=== PATIENT | female | born 1945 | race Caucasian/White ===

== ENCOUNTER → 2016-10-26 | Outpatient (CLI) | payer BC ==
[~2016-10-26] MED LIST: ACET650T82 PO; ASPEC325 PO; ATOR-22 PO; CALC600T9 PO; CHOL20009 PO; DICL75TA2 PO; DIPH1CAP11 PO; FEXO1TAB49 PO; FRRG PO; LISI20TA3 PO; TRIATAB3 PO; ZNT/150 PO
[2016-10-26 12:51] LABS: BLOOD UREA NITROGEN 13 mg/dl (7-18); BUN/CREATININE RATIO 15.8 (10-20); CALCIUM 9.5 mg/dl (8.5-10.1); CARBON DIOXIDE 28 mmol/L (21-32); CHLORIDE 100 mmol/L (98-107); GLUCOSE 86 mg/dl (70-99); POTASSIUM 3.6 mmol/L (3.5-5.1); SODIUM 136 mmol/L (136-145)
[2016-10-26 13:02] LABS: CHOLESTEROL 170 mg/dl (0-200); HDL CHOLESTEROL 83 mg/dl; TRIGLYCERIDES 106 mg/dl (0-150); VERY LOW DENSITY LIPOPROT CALC 21 mg/dl
== END | disposition home or self-care (01) ==
LOC: C.LABSPEC 12:24
PROVIDERS: ATTEND Internal Medicine
DX: I10 Essential (primary) hypertension (principal); E78.5 Hyperlipidemia, unspecified; E04.2 Nontoxic multinodular goiter; E55.9 Vitamin D deficiency, unspecified

== ENCOUNTER → 2016-11-29 | Outpatient (CLI) | payer BC ==
--- NOTE | 2016-11-29 17:03 | MAMMOGRAPHY REPORT ---
BILATERAL DIGITAL SCREENING MAMMOGRAM WITH CAD: 11/29/2016 TECHNIQUE: Current study was also evaluated with a Computer Aided Detection (CAD) system. Bilatera l CC and MLO views were obtained. COMPARISON: Comparison is made to exams dated: 11/26/2015 mammogram, 10/29/2013 mammogram, 10/28/2012 mammogram, 11/04/2014 mammogram, 10/20/2011 mammogram, and 10/19/2010 mammogram - [facility]. BREAST COMPOSITION: There are scattered areas of fibroglandular density in both breasts. FINDINGS: No suspicious masses, calcifications, or areas of architectural distortion are noted in e ither breast. There has been no significant interval change compared to prior exams. Scattered bilat eral benign-appearing calcifications are not significantly changed. IMPRESSION: ACR BI-RADS CATEGORY 2: BENIGN There is no mammographic evidence of malignancy. A 1 year screening mammogram is recommended. The p atient will receive written notification of the results. Approximately 10% of breast cancers are not detected with mammography. A negative mammographic repor t should not delay biopsy if a clinically suggestive mass is present. Ale Gil M.D. ah/:11/29/2016 16:29:58 Edger Machine Setter: Zaria DURHAM(Martin)(M), [facility] letter sent: Normal 1/2 BI-RADS Code: ACR BI-RADS Category 2: Benign
== END | disposition home or self-care (01) ==
LOC: C.MAMM 10:30
PROVIDERS: ATTEND Internal Medicine
DX: Z12.31 Encounter for screening mammogram for malignant neoplasm of breast (principal)

== ENCOUNTER → 2017-04-26 | Outpatient (CLI) | payer BC ==
[2017-04-26 12:50] LABS: BASO % 0.5 %; BASO ABS # 0.03 K/uL (0-0.2); COMPLETE YES; HEMATOCRIT 43.3 % (37-47); LYMPH % 28.4 %; LYMPH ABS # 1.65 K/uL (1.2-3.4); MEAN CELL VOLUME 90.2 fL (80-100); MEAN CORPUSCULAR HEMOGLOBIN 30.4 pg (25-34); MEAN CORPUSCULAR HGB CONC 33.7 g/dl (32-36); MEAN PLATELET VOLUME 11.2 fL (7.4-10.4); MONO % 7.7 %; NEUT % 62.4 %; PLATELET COUNT 270 K/uL (130-400); WHITE BLOOD COUNT 5.82 K/uL (4.8-10.8)
[2017-04-26 13:45] LABS: ALT/SGPT 29 U/L (12-78); AST/SGOT 31 U/L (15-37); BLOOD UREA NITROGEN 11 mg/dl (7-18); BUN/CREATININE RATIO 12.5 (10-20); CALCIUM 9.6 mg/dl (8.5-10.1); CARBON DIOXIDE 28 mmol/L (21-32); CHLORIDE 100 mmol/L (98-107); CHOLESTEROL 148 mg/dl (0-200); CREATININE 0.89 mg/dl (0.60-1.20); GLUCOSE 80 mg/dl (70-99); POTASSIUM 3.6 mmol/L (3.5-5.1); SODIUM 137 mmol/L (136-145); TRIGLYCERIDES 56 mg/dl (0-150); VERY LOW DENSITY LIPOPROT CALC 11 mg/dl
[2017-04-26 13:56] LABS: ALKALINE PHOSPHATASE 79 U/L (45-117); CHOLESTEROL/HDL RATIO 1.8; HDL CHOLESTEROL 82 mg/dl; THYROID STIMULATING HORMONE 0.948 uIu/ml (0.300-4.500)
== END | disposition home or self-care (01) ==
LOC: C.LABSPEC 12:12
PROVIDERS: ATTEND Internal Medicine
DX: I10 Essential (primary) hypertension (principal); E78.5 Hyperlipidemia, unspecified; M19.90 Unspecified osteoarthritis, unspecified site; E04.2 Nontoxic multinodular goiter; Z11.59 Encounter for screening for other viral diseases

== ENCOUNTER → 2017-09-02 | Outpatient (CLI) | payer BC | END | disposition home or self-care (01) | LOC: C.LABSPEC 12:21 | PROVIDERS: ATTEND Internal Medicine | DX: Z12.11 Encounter for screening for malignant neoplasm of colon (principal) ==

== ENCOUNTER → 2017-10-24 | Outpatient (CLI) | payer BC ==
[2017-10-24 14:41] LABS: CHOLESTEROL 175 mg/dl (0-200); LDL CHOLESTEROL (DIRECT) 89 mg/dl
== END | disposition home or self-care (01) ==
LOC: C.LABSPEC 12:38
PROVIDERS: ATTEND Internal Medicine
DX: I10 Essential (primary) hypertension (principal); E78.5 Hyperlipidemia, unspecified; E55.9 Vitamin D deficiency, unspecified; E01.0 Iodine-deficiency related diffuse (endemic) goiter

== ENCOUNTER → 2017-11-30 | Outpatient (CLI) | payer BC ==
--- NOTE | 2017-11-30 15:44 | MAMMOGRAPHY REPORT ---
BILATERAL DIGITAL SCREENING MAMMOGRAM TOMOSYNTHESIS WITH CAD: 11/30/2017 CLINICAL HISTORY: Routine screening. TECHNIQUE: Breast tomosynthesis in addition to standard 2D mammography was performed. Current study was also evaluated with a Computer Aided Detection (CAD) system. COMPARISON: Comparison is made to exams dated: 11/29/2016 mammogram, 11/26/2015 mammogram, 11/04/2014 barry mogram, 10/29/2013 mammogram, 10/28/2012 mammogram, and 10/20/2011 mammogram - [facility] [address]. BREAST COMPOSITION: The tissue of both breasts is heterogeneously dense, which may obscure small mas ses. FINDINGS: No suspicious masses, calcifications, or areas of architectural distortion are noted in ei ther breast. There has been no significant interval change compared to prior exams. IMPRESSION: ACR BI-RADS CATEGORY 1: NEGATIVE There is no mammographic evidence of malignancy. A 1 year screening mammogram is recommended. The pa tient will receive written notification of the results. Approximately 10% of breast cancers are not detected with mammography. A negative mammographic report should not delay biopsy if a clinically suggestive mass is present. Ale Gil M.D. ah/:11/30/2017 13:49:26 Property Disposal Officer: Jo DURHAM(Martin)(Yary), [facility] letter sent: Normal 1/2 BI-RADS Code: ACR BI-RADS Category 1: Negative
== END | disposition home or self-care (01) ==
LOC: C.MAMM 09:25
PROVIDERS: ATTEND Internal Medicine
DX: Z12.31 Encounter for screening mammogram for malignant neoplasm of breast (principal)

== ENCOUNTER 2020-04-23 05:08 | Observation (INO) ==
--- NOTE | 2020-04-06 11:08 | PAT Medication Instructions ---
Medication Instructions Date of Service April 06, 2020 Home Medications Medication Instructions Recorded meloxicam 15 mg tablet 15 mg PO DAILY #30 tab 02/17/20 meloxicam 15 mg tablet 15 mg PO DAILY acetaminophen [Tylenol Arthritis Pain] 1,300 mg PO HS atorvastatin [Lipitor] 20 mg PO HS calcium carbonate-vitamin D3 1 tab PO DAILY cyanocobalamin (vitamin B-12) 1,000 mcg PO DAILY ferrous sulfate 325 mg PO DAILY lisinopril 10 mg PO QAM lorazepam 0.5 mg PO QPM PRN triamterene-hydrochlorothiazid 1 tab PO QAM ASK your surgeon for instructions meloxicam 15 mg tablet 15 mg PO DAILY DO NOT take the morning of surgery calcium carbonate-vitamin D3 1 tab PO DAILY cyanocobalamin (vitamin B-12) 1,000 mcg PO DAILY ferrous sulfate 325 mg PO DAILY lisinopril 10 mg PO QAM triamterene-hydrochlorothiazid 1 tab PO QAM Take evening before surgery acetaminophen [Tylenol Arthritis Pain] 1,300 mg PO HS atorvastatin [Lipitor] 20 mg PO HS lorazepam 0.5 mg PO QPM PRN (if needed) *NOTHING TO EAT OR DRINK AFTER MIDNIGHT* Other Notes If you have any questions please call us at [phone] or [phone] or [phone] or [phone]
--- NOTE | 2020-04-06 11:30 | Anesthesiology Consultation ---
Date of Service April 06, 2020 Assessment & Plan (1) Encounter for pre-operative examination: COVID Status: As of 04/06 assessment, patient denies travel to endemic area, known exposure/sick contacts, or symptoms of COVID19. Patient instructed to follow strict social distancing guidelines, wear a mask in public and avoid travel for 14 days prior to surgery. Preoperative COVID19 testing to be completed prior to surgery (04/19). Patient made aware to self-isolate as much as possible between COVID testing and surgery. Patient needs echo to evaluate murmur prior to surgery with planned SAB. Chart Review Chart Review: Acceptable Risk for Surgery (pending echo) and Patient seen in Pre Admission Testing Teaching & Discussion Instructed NPO after midnight before surgery, except medications with 15 cc of water. Medication instructions provided according to the PAT guidelines. History Surgery Operation Date: 04/23/20 07:00 Proposed Procedures p Left Anterior Total Hip Arthroplasty - Zack Chaparro, DO Height/Weight Height: 5 ft 4 in Weight: 60.9 kg Allergies Allergy/AdvReac Type Severity Reaction Status Date / Time Penicillins Allergy Mild HIVES Unverified 04/01/20 08:05 Medications Home Medications Medication Instructions Recorded Confirmed Last Taken meloxicam 15 mg tablet 15 mg PO DAILY #30 tab 02/17/20 04/01/20 Unknown acetaminophen [Tylenol Arthritis 1,300 mg PO HS 04/01/20 04/01/20 Unknown Pain] atorvastatin [Lipitor] 20 mg PO HS 04/01/20 04/01/20 Unknown calcium carbonate-vitamin D3 1 tab PO DAILY 04/01/20 04/01/20 Unknown [Calcium 600 + D(3)] cyanocobalamin (vitamin B-12) 1,000 mcg PO DAILY 04/01/20 04/01/20 Unknown [Vitamin B-12] ferrous sulfate 325 mg PO DAILY 04/01/20 04/01/20 Unknown lisinopril 10 mg PO QAM 04/01/20 04/01/20 Unknown lorazepam 0.5 mg PO QPM PRN 04/01/20 04/01/20 Unknown triamterene-hydrochlorothiazid 1 tab PO QAM 04/01/20 04/01/20 Unknown Past Medical History Medical History 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 Hyperlipidemia Hypertension Nausea and vomiting after administration of anesthetic agent Osteoarthritis Exercise / Class Metabolic Activity II 4-5 Yardwork/Stairs/Walk up hill (limited by hip pain but denies CP or SOB with 1 FOS) Past Surgical History Surgical History History of colonoscopy History of total hip arthroplasty right Past Anesthesia History No Hx of Anesthesia Complications and No Family Hx of Anesthesia Complications History of PONV History of PONV and Hx of Motion Sickness Social History Smoking Status: Never smoker Do You Dip or Chew Tobacco: No Hx Alcohol Use: Yes Alcohol type: wine alcohol intake frequency: holidays/special occasions only Hx Substance Use: No substance use type: does not use Review of Systems Pt denies any recent chest pain, shortness of breath, cough, fever or URI. +Sinus drainage, chronic; occ palpitations Physical Exam Vital Signs BP: 159/114 (pt has not taken any BP meds this AM, and is very nervous. Takes BP at nathaniel usually 120-130s systolic, 80s diastolic) P: 80bpm SPO2: 97% RA T: 98.2 F R: 12 ENMT Mouth: + dental restorations (few crowns on molars); no chipped teeth and no loose teeth Thyromental Distance: > or= 3.5 Finger Breadths (3.5) Mallampati Class: II Neck normal visual inspection; neck extension not limited Respiratory normal respiratory effort Auscultation: lungs clear to auscultation bilaterally Cardiovascular Rate/Rhythm: + abnormal rate and + abnormal rhythm (irregularly irregular with runs of tachycardia) Heart Sounds: + murmur (II/ systolic) Extremities: no edema Patient reporting palpitations corresponding with irregular rhythm on exam. EKG showed few PACs, and patient reported decrease in symptoms when reclined for EKG. Testing Laboratory Results 04/06/20 11:41 04/06/20 11:41 PT 10.4 Seconds (9.0-12.0) 04/06/20 11:41 INR 1.0 (0.9-1.1) 04/06/20 11:41 APTT 27.1 Seconds (21.0-31.0) 04/06/20 11:41 Blood Type A Negative 04/06/20 11:41 Antibody Screen NEGATIVE 04/06/20 11:41 Electrocardiogram Date: 04/06/20 Findings: + NSR @ (83bpm with PACs) Compared to EKG of 10/08/15, PACs are now present.
--- NOTE | 2020-04-06 12:13 | XRay Report ---
XR chest Pre-admission PA/Lat HISTORY: 74 years-old Female pat preoperative exam. No acute chest complaints COMPARISON: Chest radiograph 10/08/2015 TECHNIQUE: PA and lateral views of the chest FINDINGS: Cardiomediastinal and hilar silhouettes are within normal limits. No pneumothorax, pleural effusion, airspace consolidation or overt pulmonary edema. Lungs are mildly hyperinflated. Patient is mildly ro tated on the lateral view. Degenerative changes of the shoulders and spine. IMPRESSION: No acute process. ACT 112: Negative or not required by law. The above report was generated using voice recognition software. It may contain grammatical, syntax o r spelling errors. Electronically signed by: Santos Merchant M.D. 04/06/2020 12:12 PM
[2020-04-06 12:24] LABS: Basophils # (auto) 0.04 K/uL (0-0.2); Basophils % (auto) 0.6 %; Eosinophils # (auto) 0.12 K/uL (0-0.5); Eosinophils % (auto) 1.9 %; Hematocrit (blood only) 41.8 % (37-47); Hemoglobin 13.9 g/dL (12.0-16.0); Immature Granulocytes # (auto) 0.01 K/uL (0.00-0.02); Immature Granulocytes % (auto) 0.2 %; Lymphocytes # (auto) 1.67 K/uL (1.2-3.4); Lymphocytes % (auto) 26.3 %; Mean Corpuscular Hemoglobin 30.7 pg (25-34); Mean Corpuscular Hgb Conc 33.3 g/dL (32-36); Mean Corpuscular Volume 92.3 fL (80-100); Mean Platelet Volume 10.3 fL (7.4-10.4); Monocytes % (auto) 6.3 %; Neutrophils # (auto) 4.12 K/uL (1.4-6.5); Neutrophils % (auto) 64.7 %; Platelet Count 289 K/uL (130-400); RDW Coefficient of Variation 12.7 % (11.5-14.5); RDW Standard Deviation 43.2 fL (36.4-46.3); Red Blood Count 4.53 M/uL (4.2-5.4); White Blood Count 6.36 K/uL (4.8-10.8)
[2020-04-06 12:33] LABS: Partial Thromboplastin Time 27.1 Seconds (21.0-31.0); Prothrombin Time 10.4 Seconds (9.0-12.0)
[2020-04-06 14:55] LABS: BUN Creatinine Ratio 15.1 (10-20); Creatinine Clr Calc Pharmacy 56.9 ml/min; Est GFR (African American) 90.2; Est GFR (Non-African American) 77.8; Potassium 4.2 mmol/L (3.5-5.1)
--- NOTE | 2020-04-07 06:45 | Electrocardiogram Report ---
Test Reason : Blood Pressure : / mmHG Vent. Rate : 083 BPM Atrial Rate : 083 BPM P-R Int : 166 ms QRS Dur : 092 ms QT Int : 396 ms P-R-T Axes : 082 070 060 degrees QTc Int : 465 ms Sinus rhythm with Premature atrial complexes Otherwise normal ECG When compared with ECG of 08-OCT-2015 10:53, Premature atrial complexes are now Present Confirmed by Ethan Lozoya ([id number]) on 04/07/2020 6:45:08 AM Referred By: Zack Chaparro Confirmed By:Ethan Lozoya
--- NOTE | 2020-04-22 08:12 | History & Physical Report ---
Date of Service April 22, 2020 Assessment & Plan (1) Osteoarthritis of left hip: We will proceed with a left anterior total hip arthroplasty. Postoperatively she will be placed on aspirin for DVT prophylaxis and kept overnight in the hospital for postoperative medical management. She plans to go to outpatient physical therapy upon discharge. Zaria is a low risk for joint replacement surgery without any major comorbidities. Present on Admission?: Yes History of Present Illness Chief Complaint: Primary osteoarthritis of the left hip Primary Care Provider: Eliseo Claudio MD Zaria is a pleasant 74-year-old female who is been dealing with severe increasing left hip pain. She does have a history of a right hip replacement done [address] Leon. Her hip pain is debilitating. She has trouble going up and down stairs. She has trouble sleeping at night. X-rays and clinical examination have been diagnostic for advanced osteoarthritis of the left hip. After failing conservative treatment, she has elected proceed with a left anterior total hip arthroplasty. Allergies Allergy/AdvReac Type Severity Reaction Status Date / Time Penicillins Allergy Mild HIVES Unverified 04/15/20 10:03 Home Medications Home Medications Medication Instructions Recorded Confirmed Type meloxicam 15 mg tablet 15 mg PO DAILY #30 tab 02/17/20 04/15/20 Rx acetaminophen [Tylenol Arthritis 1,300 mg PO HS 04/01/20 04/15/20 History Pain] atorvastatin [Lipitor] 20 mg PO HS 04/01/20 04/15/20 History calcium carbonate-vitamin D3 1 tab PO DAILY 04/01/20 04/15/20 History [Calcium 600 + D(3)] cyanocobalamin (vitamin B-12) 1,000 mcg PO DAILY 04/01/20 04/15/20 History [Vitamin B-12] lisinopril 10 mg PO QAM 04/01/20 04/15/20 History lorazepam 0.5 mg PO QPM PRN 04/01/20 04/15/20 History triamterene-hydrochlorothiazid 1 tab PO QAM 04/01/20 04/15/20 History Past Med/Surg History Medical History 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 Hyperlipidemia Hypertension Osteoarthritis Surgical History History of colonoscopy History of total hip arthroplasty right Nausea and vomiting after administration of anesthetic agent Family History Other No family history of adverse response to anesthesia Social History Smoking Status: Never smoker Second Hand Exposure: No; Hx Alcohol Use: Yes Alcohol type: wine Hx Substance Use: No Preferred Language: Tajik Communication Ability: Effective Dumper Mold Cleaner Required: No Beliefs That Will Affect Care: None Current Living Situation: Spouse Feels Safe at Home: Yes Review of Systems Review of Systems: All systems reviewed & are unremarkable except as noted in HPI & below Physical Exam Constitutional: WD/WN, vitals as above Eyes: PERRL, conjunctivae normal, anicteric sclerae ENMT: external ear and nose normal, oropharynx normal Neck: trachea midline, no thyromegaly Respiratory: normal respiratory effort Cardiovascular: RRR, no murmur, no edema Gastrointestinal (Abdomen): normal bowel sounds, soft, nontender, no hepatosplenomegaly Musculoskeletal: Physical examination of the left hip reveals decreased range of motion with flexion, internal and external rotation. There is significant gr oin pain with forced internal rotation of the hip his leg lengths are essentially equal. Psychiatric: A+Ox3, euthymic affect Results & Data Results & Data ([facility]) Diagnostic Findings Radiographs of the left hip and pelvis demonstrate advanced osteoarthritis with joint space narrowing osteophyte formation and [id number] articulation. PG Care Time/CCT Total # of Minutes Spent Total Time Spent with Patient: Total time spent is greater than 50% in coordination of care (as documented) at patient's floor/unit and/or counseling patient: Coding Level of Care Code 14331 Initial Inpt Care Lvl 3 Diagnoses Osteoarthritis of left hip M16.12
[2020-04-23] MEDS ORDERED: TRANEXAMIC ACID 1,000 MG **IV Pre-op IV SCH (06:00)
[2020-04-23] MEDS ORDERED: ACETAMINOPHEN 500 MG TAB PO SCH (06:00)
[2020-04-23] MEDS ORDERED: ROPIVACAINE 0.5% HCL/PF 150 MG, BUPIVACAINE 0.5% MPF 30 ML, EPINEPHrine 30MG/30ML (OR U... INSTIL SCH (06:00)
[2020-04-23] MEDS ORDERED: GABAPENTIN 300 MG CAP PO SCH (06:00)
[2020-04-23] MEDS ORDERED: dexAMETHasone 4 MG TAB PO SCH (06:00)
[2020-04-23] MEDS ORDERED: LR 500ML BOLUS, THEN 15ML/HR IV SCH (06:00)
[2020-04-23] MEDS ORDERED: LR 60ML/HR IV SCH (06:00)
[2020-04-23] MEDS ORDERED: CEFAZOLIN 1000MG 1,000 MG/7.5 ML SYR IV SCH (06:00)
[2020-04-23] MEDS ORDERED: TRANEXAMIC ACID 1,000 MG **IV Intra-op IV SCH (06:00)
[2020-04-23] MEDS ORDERED: FAMOTIDINE 20 MG TAB PO SCH (06:00)
[2020-04-23] MEDS ORDERED: PROPOFOL IV EMULSION 10 MG/ML 20 ML VIAL IV ONE (06:22)
[2020-04-23] MEDS ORDERED: MIDAZOLAM HCL 1 MG/ML 2ML VIAL ONE (06:23)
[2020-04-23] MEDS ORDERED: fentaNYL citrate 100 MCG/2 ML VIAL ONE (06:23)
[2020-04-23] MEDS ORDERED: BUPIVACAINE 0.5 % 5 MG/1 ML PF 10ML VIAL ONE (06:26)
[2020-04-23] MEDS ORDERED: HYDROmorphone INJ 2 MG/ML SYR/VIAL IV PRN (06:39)
[2020-04-23] MEDS ORDERED: fentaNYL citrate 100 MCG/2 ML VIAL IV PRN (06:39)
[2020-04-23] MEDS ORDERED: ePHEDrine sulfate 50 MG/ML AMP IV PRN (06:39)
[2020-04-23] MEDS ORDERED: ATROPINE SULFATE 0.1 MG/ML 10ML SYR IV PRN (06:39)
[2020-04-23] MEDS ORDERED: ONDANSETRON INJ 2 MG/ML 2 ML VIAL IV PRN ×2 (06:39→09:31)
--- NOTE | 2020-04-23 06:52 | History & Physical Bridge Note ---
Date of Service April 23, 2020 History & Physical Bridge Note I have examined the patient, reviewed the History & Physical and in the interval since the performance of the History & Physical I have noted the following changes of clinical significance: no changes noted
[2020-04-23] MEDS ORDERED: CEFAZOLIN 1,000 MG/7.5 ML IV PUSH IV ONE (06:53)
[2020-04-23] MEDS ORDERED: ORTHO JOINT ANESTHETIC ONE (06:55)
[2020-04-23] MEDS: CEFAZOLIN 1000MG 1,000 MG/7.5 ML SYR IV SCH ×2 (06:56→07:09)
--- NOTE | 2020-04-23 08:19 | Operative Report ---
PG Post Operative Report Pre & Post Diagnosis Operation Date: 04/23/20 07:00 Pre-Op Diagnosis: Degenerative Joint Disease Left Hip Post-Op Diagnosis: Degenerative Joint Disease Left Hip I identified the patient and participated in the time-out.: Yes Procedure Operation Date: 04/23/20 07:00 Actual Procedures p Left Anterior Total Hip Arthroplasty(Left) - Zack Chaparro DO Surgeon Zack Chaparro DO Bean Picker Machine Operator Zack Magdaleno PAC Estimated Blood Loss 200 Findings Consistent with Post-Op Diagnosis Specimens Left femoral head Complications none Disposition Disposition: Recovery Room Indications Zaria is a pleasant 74-year-old female who is been dealing with chronic increasing left hip and groin pain. X-rays and clinical examination are diagnostic for advanced osteoarthritis of the left hip. After failing conservative treatment, she elected to proceed with a left anterior total hip arthroplasty. Description of Procedure Implants used I used a Biomet Taperloc total hip arthroplasty system with a size 9 high offset micro Taperloc stem, a 52 mm G7 cup with a 25mm screw, an E1 polyethylene liner, a 36 mm ceramic head with a +3 neck. Zaria arrived at the hospital for the above procedure. She was seen in the preoperative holding area and the operative extremity was identified and signed. She was given a spinal anesthetic, a preoperative antibiotic, and TXA. She was then taken back to the operating room and laid on the table in the supine position. She was given basic sedation. The operative leg was secured to a Puristst leg positioner. The hip was then prepped and draped in sterile fashion. A timeout was done and the patient and the operative extremity was properly identified. An anterior approach was used. Dissection was taken down through the fascia and the tensor muscle belly was retracted laterally and the rectus was retracted medially. The circumflex vessels were identified and ligated. The capsule was then incised and tagged for later repair. The femoral neck was then cut and the femoral head was removed. The acetabulum was exposed. Time was spent doing a complete circumferential labral release. Sequential reaming of the acetabulum up to a size 51 reamer was done. Final reamings were done under fluoroscopy to ensure appropriate version. A Biomet 52 mm G7 cup was then impacted into place. A single 25 mm screw was placed. The E1 polyethylene liner was then snapped into place. Surrounding soft tissues were then injected with 100 cc of an orthopedic pain control cocktail. The proximal femur was then exposed. Sequential broaching up to a size 9 broach was done. Off that broach a size 36 head with a +3 neck was trialed. The hip was reduced and fluoroscopic images showed anatomic alignment of the implants in acceptable length. The broach was removed. The final size 9 high offset micro Taperloc stem was then impacted into place. A ceramic 36 mm head with a +3 neck was then impacted onto the stem and the hip was reduced. Final fluoroscopic images showed anatomic alignment of the hip. The capsule was then closed with #1 Vicryl suture. A dilute betadyne lavage was then done for 3 minutes. The joint was then irrigated with normal saline solution. The fascia was closed with #1 PDS suture. Skin was closed with 2-0 Vicryl, magi, and a Silverlon dressing. She was then transferred to a hospital bed and taken to the post anesthesia care unit in stable condition. She tolerated the procedure well. Zack Magdaleno PA-C, was present for the entire procedure. He was critical for patient positioning, prepping, draping, retraction exposure, wound closure and application of sterile dressing. I attest to the content of the Intraoperative Record and any orders documented therein. Any exceptions are noted below.
--- NOTE | 2020-04-23 08:33 | Fluoroscopy Report ---
FL hip LT 1V HISTORY: 74 years-old Female LEFT ANTERIOR HIP left hip total joint arthroplasty COMPARISON: Pelvis and left hip radiographs 02/17/2020 TECHNIQUE: 2 spot fluoroscopic images of the left hip were obtained utilizing 29.4 seconds fluoroscop y time FINDINGS: Left hip total joint arthroplasty demonstrates satisfactory alignment. No acute fracture or retained foreign body. Expected postoperative soft tissue swelling with deep tissue air. IMPRESSION: Fluoroscopic assistance as above. Please see operative report for further details. ACT 112: Negative or not required by law. The above report was generated using voice recognition software. It may contain grammatical, syntax o r spelling errors. Electronically signed by: Santos Merchant M.D. 04/23/2020 8:32 AM
--- NOTE | 2020-04-23 08:53 | Anesthesiology Progress Note ---
Date of Service April 23, 2020 Anesthesia Post Procedure Vital Signs Vital Signs: Temp Pulse Pulse Resp BP Pulse Ox 04/23/20 08:50 80 14 155/82 H 98 04/23/20 08:40 36 C L 82 16 151/77 H 99 04/23/20 05:40 37.3 C 83 20 171/73 H 98 Transfer of Care Handoff Completed per policy Notes Mental Status: alert / awake / arousable and participated in evaluation Patient Amnestic to Procedure: Yes Nausea / Vomiting: adequately controlled Pain: adequately controlled Airway Patency, RR, SpO2: stable & adequate BP & HR: stable & adequate Hydration State: stable & adequate Neuraxial Anesthesia: was administered and sensory block is resolving Anesthetic Complications: no major complications apparent and Pt Satisfied with anesthetic care
--- NOTE | 2020-04-23 09:24 | XRay Report ---
XR hip 1V LT w pelvis CLINICAL HISTORY: Postoperative evaluation. COMPARISON: Pelvis and hip radiographs February 17, 2020. FINDINGS: Alignment of the total left hip arthroplasty is anatomic. There is no periprosthetic fract ure or unexpected radiopaque foreign body. Acetabular screw is noted. There are skin magi. Right h ip arthroplasty is unchanged in appearance. IMPRESSION: Expected findings following total left hip arthroplasty. ACT 112: Negative or not required by law. Electronically signed by: Jigar Long M.D. 04/23/2020 9:23 AM
[2020-04-23] MEDS ORDERED: MAGNESIUM HYDROXIDE SUSP 30 ML UDC PO PRN (09:31)
[2020-04-23] MEDS ORDERED: LORazepam 0.5 MG TAB PO PRN (09:31)
[2020-04-23] MEDS ORDERED: bisacodyL 10 MG SUPP PR PRN (09:31)
[2020-04-23] MEDS ORDERED: HYDROmorphone INJ 0.5 MG/0.5 ML SYR IV PRN (09:31)
[2020-04-23] MEDS ORDERED: METOCLOPRAMIDE HCL INJ 5 MG/ML 2 ML VIAL IV PRN (09:31)
[2020-04-23] MEDS ORDERED: NALOXONE HCL 0.4 MG/1 ML VIAL/CARP IV PRN (09:31)
[2020-04-23] MEDS ORDERED: OXYCODONE HCL IR 5 MG TAB (IMMEDIATE RELEASE) PO PRN (09:31)
[2020-04-23] MEDS: MULTIVITAMIN TAB PO SCH (10:53)
[2020-04-23] MEDS: TRIAMTERENE/HCTZ 37.5/25MG TAB PO SCH (10:53)
[2020-04-23] MEDS: SODIUM CHLORIDE 0.9% 1000ML 1,000 ML IV SCH ×2 (10:54→21:04)
[2020-04-23] MEDS: KETOROLAC TROMETHAMINE 15 MG/ML VIAL IV SCH ×3 (10:54→21:04)
[2020-04-23] MEDS: lisinopriL 10 MG TAB PO SCH (11:08)
[2020-04-23] MEDS: ASPIRIN 81 MG ECTAB PO SCH ×2 (12:44→21:03)
[2020-04-23] MEDS: DOCUSATE SODIUM 100 MG CAP PO SCH ×2 (12:44→21:03)
[2020-04-23] MEDS: ACETAMINOPHEN 500 MG TAB PO SCH ×2 (14:05→21:04)
[2020-04-23] MEDS: CEFAZOLIN 2000MG 2,000 MG/15 ML SYR IV SCH ×2 (15:44→22:19)
[2020-04-23] MEDS ORDERED: ATORVASTATIN 20 MG TAB PO SCH (21:00)
[2020-04-23] MEDS ORDERED: SENNA 8.6 MG TAB PO SCH (21:00)
[2020-04-24] MEDS: KETOROLAC TROMETHAMINE 15 MG/ML VIAL IV SCH ×2 (03:32→10:05)
[2020-04-24] MEDS: SODIUM CHLORIDE 0.9% 1000ML 1,000 ML IV SCH (03:52)
[2020-04-24] MEDS: ACETAMINOPHEN 500 MG TAB PO SCH (05:12)
[2020-04-24 06:02] LABS: Basophils # (auto) 0.01 K/uL (0-0.2); Basophils % (auto) 0.1 %; Eosinophils # (auto) 0.02 K/uL (0-0.5); Eosinophils % (auto) 0.1 %; Hematocrit (blood only) 30.9 % (37-47); Hemoglobin 10.9 g/dL (12.0-16.0); Immature Granulocytes # (auto) 0.04 K/uL (0.00-0.02); Immature Granulocytes % (auto) 0.3 %; Lymphocytes # (auto) 1.17 K/uL (1.2-3.4); Mean Corpuscular Hemoglobin 30.9 pg (25-34); Mean Corpuscular Hgb Conc 35.3 g/dL (32-36); Mean Corpuscular Volume 87.5 fL (80-100); Mean Platelet Volume 10.5 fL (7.4-10.4); Monocytes # (auto) 1.05 K/uL (0.11-0.59); Monocytes % (auto) 7.2 %; Neutrophils # (auto) 12.36 K/uL (1.4-6.5); Neutrophils % (auto) 84.3 %; Platelet Count 253 K/uL (130-400); RDW Coefficient of Variation 12.2 % (11.5-14.5); RDW Standard Deviation 39.3 fL (36.4-46.3); Red Blood Count 3.53 M/uL (4.2-5.4); White Blood Count 14.65 K/uL (4.8-10.8)
[2020-04-24 06:41] LABS: BUN Creatinine Ratio 15.9 (10-20); Calcium 8.3 mg/dl (8.5-10.1); Creatinine Clr Calc Pharmacy 60.1 ml/min; Est GFR (African American) 96.3; Est GFR (Non-African American) 83.1; Potassium 3.4 mmol/L (3.5-5.1)
--- NOTE | 2020-04-24 07:23 | Orthopedic Progress Note ---
Date of Service April 24, 2020 Assessment & Plan (1) Status post left hip replacement: Overall she is doing fairly well. She is not in too much pain in the left hip. She will be seen by physical therapy later this morning for ambulation and range of motion exercises. She is on aspirin for DVT prophylaxis. If she does well with physical therapy and she is feeling a little bit more stable, she can be discharged home later today, otherwise, she can stay until tomorrow. She will follow-up with orthopedics in 2 weeks. Present on Admission?: Yes Subjective Zaria was seen and examined at bedside this morning. Overall she is doing fairly well. She is having much pain in the left hip. She said she was feeling a little lightheaded and dizzy last night but she is feeling a little better this morning. She has been up and ambulating to the bathroom. She has no complaints. Physical Exam Musculoskeletal: On physical examination of the left hip, the Silverlon dressing is clean and dry. Her leg lengths are equal. She has active dorsiflexion and plantarflexion of her left ankle. Results & Data ([facility]) Vital Signs (Past 12 Hours) Vital Signs Temp Pulse Resp BP Pulse Ox 04/24/20 07:08 36.4 C L 74 16 133/77 98 04/24/20 04:00 36.4 C L 74 16 133/77 98 04/23/20 22:22 36.7 C 73 18 136/78 98 Laboratory Results H & H 04/06/20 04/24/20 Range/Units 11:41 05:02 Hgb 13.9 10.9 L (12.0-16.0) g/dL Hct 41.8 30.9 L (37-47) % Coagulation 04/06/20 Range/Units 11:41 INR 1.0 (0.9-1.1) Diagnostic Findings Postoperative x-rays of the left hip show the prosthesis to be in anatomic alignment without any evidence of fracture, dislocation, or loosening. PG Care Time/CCT Total # of Minutes Spent Total Time Spent with Patient: Total time spent is greater than 50% in coordination of care (as documented) at patient's floor/unit and/or counseling patient: Coding Level of Care Code None Diagnoses Status post left hip replacement Z96.642
--- NOTE | 2020-04-24 07:24 | Discharge Summary ---
Date of Service April 24, 2020 Admission HPI Per Admitting Provider Zaria is a pleasant 74-year-old female who is been dealing with severe increasing left hip pain. She does have a history of a right hip replacement done [address] Leon. Her hip pain is debilitating. She has trouble going up and down stairs. She has trouble sleeping at night. X-rays and clinical examination have been diagnostic for advanced osteoarthritis of the left hip. After failing conservative treatment, she has elected proceed with a left anterior total hip arthroplasty. Principal Diagnosis Left hip replacement Discharge Data Allergies Allergy/AdvReac Type Severity Reaction Status Date / Time Penicillins Allergy Mild HIVES Verified 04/23/20 05:35 Consultations 04/24/20 08:00 Consult Case Management - Discharge Planning Routine Procedures Performed Operation Date: 04/23/20 07:00 Actual Procedures p Left Anterior Total Hip Arthroplasty(Left) - Zack Chaparro DO Ordered Studies 04/23/20 07:00 FL fluoroscopy <1hr Routine FL hip LT 1V Routine Hospital Course (1) Status post left hip replacement: On April 23, 2020 Zaria arrived at [facility] and underwent a left anterior total hip arthroplasty without complication. She had a spinal anesthetic. Postoperatively she was started on aspirin for DVT prophylaxis and transferred to the general orthopedic floors. Her hospital course was uneventful. On postop day #1 her H&H was stable and her pain was well controlled. She was able to participate well with physical therapy doing ambulation and range of motion exercises. She was then discharged home. She will follow-up with orthopedics in 2 weeks. Total Time Total Time Spent Total Time Spent (In Minutes): 20 Discharge Plan Discharge Items Patient Disposition: Home - Home Health Services Reason For Visit: Degenerative Joint Disease Left Hip Discharge Diagnosis: Left hip replacement Activity: As commented below Non-emergency contact: Surgeon Call non-emergency contact if: your wound has increased redness and your wound has increased drainage Follow-up/Referrals: Eliseo Claudio MD [Primary Care Provider] - Diet: Regular Addtl Attending Provider Instructions: Activity and Therapy Recommendations: * If you are using [facility] then therapy will be provided at your home until they feel you have accomplished all of your goals. * If you are using [facility] then Physical Therapy will be provided until they feel you are ready to start Outpatient Physical Therapy. * If you are not using home therapy then Outpatient Physical Therapy should start about 3-5 days from your day of surgery. Therapy will last about 6-10 weeks * You were shown a series of exercises in the hospital. Do these exercises three times each day including the exercises you were shown in physical therapy. * Get up and walk several times each day.~ For the first four weeks, try not to stand or walk for more than one hour at a time. If you do stand or walk for more than one hour, you will not hurt anything, but your leg will likely swell.~~ * As you feel comfortable, you may change from the walker or crutches to a cane and~then to independent walking. Medications: * Narcotic You will likely be sent home from the hospital with a prescription for the narcotic pain medication that worked best throughout your stay. * Aspirin Most patients will be required to take Aspirin 81mg twice a day for 6 weeks after surgery. This is obtained [id number] and a prescription is not necessary. * Other medications may be prescribed for specific circumstances. If you have any questions, please call the office at . * Resume previous home medications unless otherwise instructed TEDs/Elastic Stockings: The white elastic stockings help limit swelling and prevent blood clots from forming in your legs. The more you wear them, the more they work. Wear them for six weeks. Dressing Care: Leave the Silverlon dressing in place for 7 days. After 7 days you may remove the dressing. If the incision is not draining then you may leave the magi open to air. If there is a little bit of drainage or if the magi are getting stuck on your clothing then cover the incision with a dry dressing. The magi will be removed at your 2 week follow-up appointment. Showering: You may shower with the Silverlon dressing in place. Let the shower spray hit the other shoulder. You can pat the dressing dry. If the dressing becomes wet underneath the plastic then simply remove the dressing. Keep the incision dry until you are 7 days out from the day of surgery. At that time you can shower with the magi exposed. Let the soapy shower water run over the magi and pat them dry. Do not scrub or soak the incision. Things To Watch For: * Drainage from the incision site that occurs more than one week after your surgery. * Increased redness at the incision site. * Fever above 102 degrees Fahrenheit. * Unusual chest pain or shortness of breath. * Call [facility] at with any of the above problems Follow-Up Visit: Follow-up with Dr. Chaparro's PA (Zack Magdaleno) 2-3 weeks after your day of surgery. He will remove your magi and answer any questions. If you have any additional questions or concerns, Dr Chaparro is usually in the office at the same time and will be available An appointment was probably scheduled when you signed-up for surgery in the office. If you have any questions call Office Instructions: More detailed instructions as well as Frequently Asked Questions were provided in a folder by our office when you signed-up for surgery. Please review these instructions when you get home. If you have any further questions or concerns, please feel free to call the office at [phone] Pending Studies at Discharge: No Stand-Alone Forms: My [facility], Smoking Cessation Medications and DC Order Prescriptions: New oxycodone 5 mg Tablet 5 mg PO Q4H PRN (Reason: pain) Qty: 30 RF: 0 aspirin 81 mg Tablet,Delayed Release (Dr/Ec) 81 mg PO BID 42 Days Qty: 0 RF: 0 Continued meloxicam [Mobic] 15 mg tablet 15 mg PO DAILY Qty: 30 RF: 3 atorvastatin [Lipitor] 20 mg Tablet 20 mg PO HS RF: 0 cyanocobalamin (vitamin B-12) [Vitamin B-12] 1,000 mcg Tablet 1,000 mcg PO DAILY RF: 0 acetaminophen [Tylenol Arthritis Pain] 650 mg Tablet Extended Release 1,300 mg PO HS RF: 0 lorazepam 0.5 mg Tablet 0.5 mg PO QPM PRN (Reason: Sleep) RF: 0 lisinopril 10 mg Tablet 10 mg PO QAM RF: 0 triamterene-hydrochlorothiazid 37.5-25 mg Tablet 1 tab PO QAM RF: 0 calcium carbonate-vitamin D3 [Calcium 600 + D(3)] 600 mg(1,500mg) -400 unit Tablet 1 tab PO DAILY RF: 0 Discharge Orders: Discharge Order (Routine); Ordered 04/24/20 Ordered By: Zack Chaparro Admission Data Admit Date/Time: 04/23/20 08:41 Attending Provider: Zack Chaparro Admit Provider: Zack Chaparro Primary Care Provider: Eliseo Claudio Other Interventions: Discharge Summary Assessment (RN) Last Done: 04/24/20 07:08 Coding Level of Care Code D/C Day Management <30 mins Diagnoses Status post left hip replacement Z96.642
[2020-04-24 07:35] VITALS: BP 121/71; PULSE 71; TEMP 98.8; O2SAT 100
[2020-04-24] MEDS ORDERED: dexAMETHasone 4 MG TAB PO SCH (08:00)
[2020-04-24] MEDS: MULTIVITAMIN TAB PO SCH (08:33)
[2020-04-24] MEDS: ASPIRIN 81 MG ECTAB PO SCH (08:33)
[2020-04-24] MEDS: lisinopriL 10 MG TAB PO SCH (08:33)
[2020-04-24] MEDS: TRIAMTERENE/HCTZ 37.5/25MG TAB PO SCH (08:33)
[2020-04-24] MEDS: DOCUSATE SODIUM 100 MG CAP PO SCH (08:33)
== END 2020-04-24 11:02 | disposition home or self-care (01) ==
LOC: 3E 05:08 → ASU 05:08